=== PATIENT | female | born 1995 | race Caucasian/White ===

== ENCOUNTER 2018-01-31 22:28 | Emergency (ER) | payer OTHER ==
[2018-02-01 00:07] LABS: Urine Appearance Clear; Urine Blood 2+ (Negative); Urine Color Colorless; Urine Ketones Negative (Negative); Urine Protein Negative (Negative); Urine Specific Gravity 1.003 (1.010-1.030); Urine Urobilinogen Negative (Negative)
[2018-02-01 00:21] LABS: ABS Basophils 0.1 10^3/ul (0-0.2); ABS Eosinophils 0.1 10^3/ul (0-0.6); ABS Lymphocytes 2.8 10^3/ul (1.0-4.8); ABS Monocytes 0.6 10^3/ul (0-0.8); ABS Neutrophils 4.5 10^3/ul (1.5-7.7); ABS Nucleated RBC 0 10^3/ul; Hematocrit 42 % (35-47); Hemoglobin 13.7 g/dl (12.0-16.0); Lymphocyte % 34.5 % (25-47); Mean Corpuscular HGB Conc 33 g/dl (31-36); Mean Corpuscular Hemoglobin 29 pg (27-31); Mean Corpuscular Volume 87 fL (80-97); Mean Platelet Volume 8.2 um3 (7.4-10.4); Nucleated Red Blood Cells % 0.1; Platelet Count 243 10^3/ul (150-450); Red Blood Count 4.77 10^6/ul (4.0-5.4); Red Cell Distribution Width 13 % (10.5-15); White Blood Count 8.1 10^3/ul (3.5-10.8)
[2018-02-01 00:39] LABS: EGFR Non-African American 95.2 (>60)
[2018-02-01 04:59] VITALS: BP 91/63
--- NOTE | 2018-02-01 05:26 | ED ---
Aaron Little Thomas, scribed for Chato Guevara MD on 01/31/18 at 2315 . Complex/Multi-Sys Presentation - HPI Summary HPI Summary: The patient is a 22 year old female with self-inflicted lacerations to her left wrist that were inflicted today. The patient denies suicidal and homicidal ideation. She has a past medical history of depression. She is on Lexapro. - History Of Current Complaint Chief Complaint: EDMentalHealth Time Seen by Provider: 01/31/18 23:07 Hx Obtained From: Patient Onset/Duration: Still Present Timing: Constant Severity Currently: Mild Location: Pain At: - left wrist Alleviating Factor(s): None Associated Signs And Symptoms: Negative: Other - suicidal ideation, homicidal ideation - Allergies/Home Medications Allergies/Adverse Reactions: Allergies Allergy/AdvReac Type Severity Reaction Status Date / Time ibuprofen Allergy Rash Verified 01/31/18 23:15 Home Medications: Home Medications Lexapro 10 mg 10 mg PO DAILY 01/31/18 [History Confirmed 01/31/18] Olivia 3 mg-0.02 mg Tablet 1 tab PO DAILY 01/31/18 [History Confirmed 01/31/18] PMH/Surg Hx/FS Hx/Imm Hx Endocrine/Hematology History: Denies: Hx Diabetes Psychiatric History: Reports: Hx Depression Infectious Disease History: No Infectious Disease History: Denies: Traveled Outside the [place] in Last 30 Days - Family History Known Family History: Positive: Other - Patient denies relevant FHx - Social History Occupation: Student Lives: Dormitory/Roommates Alcohol Use: None Hx Substance Use: No Substance Use Type: Reports: None Hx Tobacco Use: No Smoking Status (MU): Never Smoked Tobacco Review of Systems Negative: Fever Positive: Other - Self-inflicted laceraions Negative: Other - suicidal, homicidal ideation All Other Systems Reviewed And Are Negative: Yes Physical Exam - Summary Physical Exam Summary: VITAL SIGNS: Reviewed. GENERAL: Patient is a well-developed and nourished female who is lying comfortable in the stretcher. Patient is not in any acute respiratory distress. HEAD AND FACE: No signs of trauma. No ecchymosis, hematomas or skull depressions. No sinus tenderness. EYES: PERRLA, EOMI x 2, No injected conjunctiva, no nystagmus. EARS: Hearing grossly intact. Ear canals and tympanic membranes are within normal limits. MOUTH: Oropharynx within normal limits. NECK: Supple, trachea is midline, no adenopathy, no JVD, no carotid bruit, no c- spine tenderness, neck with full ROM. CHEST: Symmetric, no tenderness at palpation LUNGS: Clear to auscultation bilaterally. No wheezing or crackles. CVS: Regular rate and rhythm, S1 and S2 present, no murmurs or gallops appreciated. ABDOMEN: Soft, non-tender. No signs of distention. No rebound no guarding, and no masses palpated. Bowel sounds are normal. EXTREMITIES: FROM in all major joints, no edema, no cyanosis or clubbing. NEURO: Alert and oriented x 3. No acute neurological deficits. Speech is normal and follows commands. SKIN: She has two two-inch lacerations to her left wrist. They are self- inflicted and superficial. Triage Information Reviewed: Yes Vital Signs On Initial Exam: Initial Vitals Temp Pulse Resp BP Pulse Ox 97.9 F 77 16 114/72 99 01/31/18 22:29 01/31/18 22:29 01/31/18 22:29 01/31/18 22:29 01/31/18 22:29 Vital Signs Reviewed: Yes Diagnostics - Vital Signs Vital Signs Temp Pulse Resp BP Pulse Ox 01/31/18 22:29 97.9 F 77 16 114/72 99 - Laboratory Result Diagrams: 02/01/18 00:10 02/01/18 00:10 Lab Statement: Any lab studies that have been ordered have been reviewed, and results considered in the medical decision making process. Complex Multi-Symp Course/Dx Assessment/Plan: The patient is a 22 year old female with self-inflicted lacerations to her left wrist that were inflicted today. The patient denies suicidal and homicidal ideation. Bloodwork and urinalysis were obtained. The patient was cleared for mental health evaluation at 02:19. After mental health evaluation, Dr. Ríos recommends discharging the patient. The patient is diagnosed with adjustment disorder and stress. The evaluators discharged the patient. - Diagnoses Provider Diagnoses: Adjustment disorder, Stress - Physician Notifications Discussed Care Of Patient With: Dr. Ríos Time Discussed With Above Provider: 04:30 Instructed by Provider To: Other - Dr. Ríos, psychiatry, recommends discharging the patient. Discharge - Sign-Out/Discharge Documenting (check all that apply): Discharge - Discharge Plan Condition: Stable Disposition: HOME Patient Education Materials: Stress (ED) Forms: *School Release Referrals: Lisa Ambriz [Primary Care Provider] - The documentation as recorded by the Aaron walters Thomas accurately reflects the service I personally performed and the decisions made by , Chato Guevara MD.
== END 2018-02-01 04:55 | disposition home or self-care (01) ==
LOC: ED 22:28
DX: S61.512A Laceration without foreign body of left wrist, initial encounter (principal); F43.20 Adjustment disorder, unspecified; F43.9 Reaction to severe stress, unspecified; X83.8XXA Intentional self-harm by other specified means, initial encounter; Y92.9 Unspecified place or not applicable
CPT/HCPCS: 36415; 80053; 80307; 80320; 80329; 81003; 81015; 84443; 84702; 85025; 87086; 99284; G0480